=== PATIENT | male | born 1955 | race Caucasian/White ===

== ENCOUNTER 2020-10-25 11:02 | Outpatient (CLI) | payer BC ==
[2020-10-05 23:10] LABS: SARS-CoV-2 PCR by NAA Not Detected (NotDetected)
[2020-10-25 21:51] LABS: SARS-CoV-2 PCR by NAA Not Detected (NotDetected)
== END 2020-10-25 11:03 | disposition home or self-care (01) ==
LOC: LABBT 11:02
PROVIDERS: ATTEND Anesthesiology Pain Medicine
DX: Z01.812 Encounter for preprocedural laboratory examination (principal); Z20.822 Contact with and (suspected) exposure to COVID-19
CPT/HCPCS: 87635; U0003; U0005

== ENCOUNTER 2020-10-31 10:26 | Day surgery (SDC) | payer OTHER ==
[~2020-10-31 10:26] MED LIST: Lidocaine 1% PF 5 ML VIAL ONE; Ondansetron PF 4 MG/2 ML Vial ONE; PHENYLEPHRINE-NS 100 MCG/ML 10 ML SYRINGE ONE; PROPOFOL 200 MG/20 ML VIAL ONE; Succinylcholine 200 MG/10 ml SYRINGE FS ONE; ePHEDrine 50 MG/ML VIAL ONE
[2020-10-31] MEDS ORDERED: Lidocaine 2% PF 5 ML VIAL ONE (12:46)
[2020-10-31] MEDS ORDERED: Bupivacaine PF 0.5% 30 ML VIAL ONE (12:46)
[2020-10-31] MEDS ORDERED: EPINEPHrine 1 MG/ML AMP ONE (12:46)
[2020-10-31] MEDS ORDERED: CEFAZOLIN 1 GM VIAL ONE (12:59)
[2020-10-31] MEDS ORDERED: Sodium Chloride 0.9% 100 ML ONE (12:59)
[2020-10-31] MEDS ORDERED: Midazolam HCl 2 mg/2 ml Vial ONE (13:01)
[2020-10-31] MEDS ORDERED: Fentanyl 100 MCG/2 ML VIAL ONE ×3 (13:01→17:36)
[2020-10-31] MEDS ORDERED: Lidocaine 2% Jelly 5 ML TUBE ONE (13:13)
[2020-10-31] MEDS ORDERED: Thrombin 5000 UNITS/5 ML VIAL ONE (14:11)
[2020-10-31] MEDS ORDERED: Promethazine HCl 25 MG/ML VIAL IM PRN (16:13)
[2020-10-31] MEDS ORDERED: Promethazine HCl 25 MG/ML VIAL SLOW IVP PRN (16:13)
[2020-10-31] MEDS ORDERED: Ondansetron HCl/PF 4 MG/2 ML Vial IVP PRN (16:13)
[2020-10-31] MEDS ORDERED: Morphine 2 MG/ML VIAL SLOW IVP PRN (16:41)
[2020-10-31] MEDS ORDERED: Acetaminophen/Codeine 30-300mg Tablet PO PRN (16:41)
[2020-10-31] MEDS ORDERED: HYDROcodone/Acetaminophen 7.5/325 mg Tablet PO PRN (16:41)
[2020-10-31] MEDS ORDERED: traMADol HCl 50 MG TAB PO PRN (16:41)
[2020-10-31] MEDS ORDERED: tiZANidine HCl 4 MG TAB PO PRN (16:41)
[2020-10-31] MEDS ORDERED: Acetaminophen 325 MG TAB PO PRN (16:41)
[2020-10-31] MEDS ORDERED: Calcium Carbonate 500 MG ChewTAB PO PRN (16:43)
[2020-10-31 18:59] VITALS: BMI 25.7
[2020-10-31] MEDS: CEFAZOLIN 2 GM in Premix Bag 1 BAG IVPB SCH (20:59)
[2020-10-31] MEDS ORDERED: Pregabalin 75 MG CAP PO SCH (21:00)
[2020-10-31] MEDS: Sodium Chloride 0.9% 1,000 ML IV SCH (21:00)
[2020-11-01] MEDS: CEFAZOLIN 2 GM in Premix Bag 1 BAG IVPB SCH (05:08)
[2020-11-01] MEDS ORDERED: Losartan 25 MG TAB PO SCH (09:00)
[2020-11-01 09:36] VITALS: BP 113/59; TEMP 98.4
[2020-11-01] MEDS: Sodium Chloride 0.9% 1,000 ML IV SCH (10:29)
== END 2020-11-01 10:45 | disposition home or self-care (01) ==
LOC: SDC 10:26 → ONC 16:44 → SDC 11-01 10:45
PROVIDERS: ATTEND Anesthesiology Pain Medicine
PROC: 0JH70DZ Insertion of Multiple Array Stimulator Generator into Back Subcutaneous Tissue and Fascia, Open Approach (ICD-10-PCS; principal; 2020-11-01)
PROC: 00HU0MZ Insertion of Neurostimulator Lead into Spinal Canal, Open Approach (ICD-10-PCS; principal; 2020-11-01)
DX: G89.4 Chronic pain syndrome (principal); I10 Essential (primary) hypertension; I48.91 Unspecified atrial fibrillation; K21.9 Gastro-esophageal reflux disease without esophagitis; Z79.01 Long term (current) use of anticoagulants; Z79.899 Other long term (current) drug therapy
CPT/HCPCS: 72070; 76000; 93005; 93010; C1778; C1787; J0171; J0690; J2001; J2250; J2270; J2405; J2704; J3010; J3370; J3490; L8679; L8689; S0020